=== PATIENT | male | born 1960 | race African-American/Black ===

== ENCOUNTER 2020-11-15 14:59 | Emergency (ER) | payer MEDICARE, MEDICAID ==
[~2020-11-15] VITALS: Ht 182.9 cm; Wt 105.0 kg
[2020-11-15] MEDS: ACETAMINOPHEN 325MG TABLET PO STA (16:05)
[2020-11-15] MEDS: GABAPENTIN 100MG CAPSULE PO ONE (16:15)
[2020-11-15 16:32] LABS: BASOPHILS % 0.9 % (0.0-2.0); EOSINOPHILS % 1.9 % (0.0-5.0); LYMPHOCYTES % 27.1 % (20.0-50.0); MEAN CORPUSCULAR HEMOGLOBIN 29.4 pg (28.0-32.0); MEAN CORPUSCULAR VOLUME 84.6 fL (80.0-94.0); MEAN PLATELET VOLUME 9.8 fl (7.4-10.4); MONOCYTES % 10.8 % (2.0-8.0); NEUTROPHILS % 59.3 % (40.0-76.0); PLATELET 197 x1000/uL (130-400); RED BLOOD CELL COUNT 5.43 mill/uL (4.7-6.1); RED CELL DISTRIBUTION WIDTH 14.3 % (11.6-14.6)
[2020-11-15 16:38] LABS: CHLORIDE 112 mEq/L (98-107)
[2020-11-15] MEDS: RIVAROXABAN 15 MG TABLET PO SCH (17:00)
[2020-11-15] MEDS ORDERED: HEPARIN 25,000 UNITS PREMIX 250 ML IV SCH (18:00)
[2020-11-15] MEDS ORDERED: HEPARIN BOLUS PRN aPTT 37-44 IV (18:00)
[2020-11-15] MEDS ORDERED: HEPARIN BOLUS PRN aPTT <36 IV (18:00)
[2020-11-15] MEDS: HEPARIN 80 UNITS/KG BOLUS IV NR (18:50)
[2020-11-15] MEDS ORDERED: XAR15 MT (19:53)
[2020-11-15 20:58] VITALS: BP 141/90
[2020-11-16] MEDS ORDERED: RIVAROXABAN 15 MG TABLET PO SCH (17:00)
[2020-11-19] MEDS ORDERED: GABA-532 PO (12:08)
[2020-11-19] MEDS ORDERED: SIMV-46 PO (12:08)
[2020-11-19] MEDS ORDERED: AMLO10TA80 PO (12:08)
[2020-11-19] MEDS ORDERED: QUET300T2 PO (12:08)
== END 2020-11-15 21:04 | disposition home or self-care (01) ==
LOC: ER 14:59 → EDSEX 14:59 → ER 21:04 → CANBEDREQ 11-16 08:55
DX: I82.451 Acute embolism and thrombosis of right peroneal vein (principal); G62.9 Polyneuropathy, unspecified; I10 Essential (primary) hypertension; Z87.19 Personal history of other diseases of the digestive system; Z88.8 Allergy status to other drugs, medicaments and biological substances
CPT/HCPCS: 36415; 73630; 80053; 85025; 85730; 93005; 93970; 96374; 99285; J1644

== ENCOUNTER 2020-12-22 01:01 | Inpatient (IN) | payer MEDICARE, MEDICAID ==
[~2020-12-22] VITALS: Ht 182.9 cm; Wt 91.7 kg
[~2020-12-22 01:01] MED LIST: AMLO10TA80 PO; GABA-532 PO; HYDR-4001 PO; QUET300T2 PO; SIMV-46 PO
[2020-12-22] MEDS ORDERED: HYDROCODONE/ACETAMINOPHEN 5/325MG TABLET PO STA (02:28)
[2020-12-22 02:45] LABS: CHLORIDE 113 mEq/L (98-107)
[2020-12-22 02:49] LABS: PARTIAL THROMBOPLASTIN TIME 21.6 sec (23.4-31.0); PROTHROMBIN TIME 10.7 sec (9.6-11.0)
[2020-12-22 03:28] LABS: BASOPHILS % 0.5 % (0.0-2.0); EOSINOPHILS % 1.9 % (0.0-5.0); HEMATOCRIT. 24.4 % (42.0-52.0); HEMOGLOBIN. 8.1 g/dL (14.0-18.0); LYMPHOCYTES % 21.2 % (20.0-50.0); MEAN CORPUSCULAR HEMOGLOBIN 25.5 pg (28.0-32.0); MEAN CORPUSCULAR VOLUME 76.4 fL (80.0-94.0); MEAN PLATELET VOLUME 8.5 fl (7.4-10.4); MONOCYTES % 7.8 % (2.0-8.0); NEUTROPHILS % 68.6 % (40.0-76.0); PLATELET 225 x1000/uL (130-400); RED BLOOD CELL COUNT 3.19 mill/uL (4.7-6.1); RED CELL DISTRIBUTION WIDTH 21.4 % (11.6-14.6)
[2020-12-22] MEDS ORDERED: ACETAMINOPHEN 325MG TABLET PO PRN ×2 (04:30→13:00)
[2020-12-22 05:41] LABS: CLARITY URINE CLEAR (CLEAR); COLOR URINE YELLOW (YELLOW); KETONES URINE NEGATIVE (NEGATIVE); LEUKOCYTE ESTERASE URINE NEGATIVE (NEGATIVE); NITRITE URINE NEGATIVE (NEGATIVE); OCCULT BLOOD URINE NEGATIVE (NEGATIVE); PROTEIN URINE NEGATIVE (NEGATIVE); SPECIFIC GRAVITY URINE 1.023 (1.005-1.030)
[2020-12-22 05:54] LABS: *AMPHETAMINES SCREEN URINE PRESUMTIVE POSITIVE (NEGATIVE); *BARBITURATES SCREEN URINE NEGATIVE (NEGATIVE); *BENZODIAZEPINES SCREEN URINE NEGATIVE (NEGATIVE); *COCAINE SCREEN URINE NEGATIVE (NEGATIVE); METHADONE URINE SCREEN NEGATIVE (NEGATIVE); OPIATES URINE SCREEN NEGATIVE (NEGATIVE); PHENCYCLIDINE URINE SCREEN NEGATIVE (NEGATIVE)
[2020-12-22 05:55] LABS: CANNABINOID URINE SCREEN NEGATIVE (NEGATIVE)
[2020-12-22 12:22] VITALS: BP 177/93
[2020-12-22 12:30] VITALS: BP 177/93
[2020-12-22] MEDS ORDERED: AMLODIPINE 10MG TABLET PO SCH (12:45)
[2020-12-22] MEDS ORDERED: CLONIDINE 0.1MG TABLET PO PRN (13:00)
[2020-12-22] MEDS ORDERED: MAGNESIUM/ALUMINUM HYDROXIDE/SIMETHICONE 30ML UDC PO PRN (13:00)
[2020-12-22] MEDS ORDERED: ONDANSETRON HCL 4MG/2ML INJ IV PRN (13:00)
[2020-12-22] MEDS ORDERED: HYDROCODONE/APAP 7.5/325MG 1 TAB TABLET PO PRN (13:00)
[2020-12-22] MEDS ORDERED: QUETIAPINE FUMARATE 50MG TABLET PO SCH (13:00)
[2020-12-22] MEDS ORDERED: GUAIFENESIN 200MG/10ML SUGAR FREE UDC PO PRN (13:00)
[2020-12-22] MEDS ORDERED: DOCUSATE SODIUM 100MG CAPSULE PO PRN (13:00)
[2020-12-22] MEDS: GABAPENTIN 300MG CAPSULE PO SCH ×2 (13:38→21:17)
[2020-12-22] MEDS: QUETIAPINE FUMARATE 50MG TABLET PO SCH (14:32)
[2020-12-22 16:00] VITALS: BP 128/56
[2020-12-22 20:00] VITALS: BP 99/58
[2020-12-23] VITALS: BP 113/57
[2020-12-23 04:00] VITALS: BP 109/70
[2020-12-23] MEDS: GABAPENTIN 300MG CAPSULE PO SCH (05:55)
[2020-12-23 08:00] VITALS: BP 111/68
[2020-12-23] MEDS: QUETIAPINE FUMARATE 50MG TABLET PO SCH (08:37)
[2020-12-23] MEDS ORDERED: AMLODIPINE 10MG TABLET PO SCH (09:00)
[2020-12-23 09:36] LABS: BASOPHILS % 0.5 % (0.0-2.0); EOSINOPHILS % 2.3 % (0.0-5.0); HEMATOCRIT. 25.7 % (42.0-52.0); HEMOGLOBIN. 8.4 g/dL (14.0-18.0); MEAN CORPUSCULAR HEMOGLOBIN 24.9 pg (28.0-32.0); MEAN CORPUSCULAR VOLUME 76.1 fL (80.0-94.0); MEAN PLATELET VOLUME 8.3 fl (7.4-10.4); MONOCYTES % 9.8 % (2.0-8.0); NEUTROPHILS % 69.4 % (40.0-76.0); PLATELET 229 x1000/uL (130-400); RED BLOOD CELL COUNT 3.37 mill/uL (4.7-6.1); RED CELL DISTRIBUTION WIDTH 21.7 % (11.6-14.6)
[2020-12-23 09:47] LABS: CHLORIDE 112 mEq/L (98-107)
[2020-12-23 09:58] LABS: LDL CHOLESTEROL 71 mg/dL (5-100)
[2020-12-23 10:01] LABS: HDL CHOLESTEROL 40 mg/dL (40-59)
[2020-12-23 12:00] VITALS: BP 107/69
[2020-12-23 13:40] VITALS: BP 107/89
== END 2020-12-23 14:50 | disposition home or self-care (01) | DRG 300 ==
LOC: ER 01:01 → 5WST 04:31 → ENRESERV 10:29
PROVIDERS: ADMIT Hospitalist; ATTEND Hospitalist
DX: I82.431 Acute embolism and thrombosis of right popliteal vein (principal); E44.1 Mild protein-calorie malnutrition; M79.605 Pain in left leg; D63.8 Anemia in other chronic diseases classified elsewhere; E78.5 Hyperlipidemia, unspecified; G62.9 Polyneuropathy, unspecified; F17.200 Nicotine dependence, unspecified, uncomplicated; I10 Essential (primary) hypertension; Z95.828 Presence of other vascular implants and grafts; Z88.8 Allergy status to other drugs, medicaments and biological substances; Z68.27 Body mass index [BMI] 27.0-27.9, adult; Z79.899 Other long term (current) drug therapy; F19.10 Other psychoactive substance abuse, uncomplicated
CPT/HCPCS: 36415; 71045; 80053; 80061; 80305; 81003; 85025; 93005; 93970; 99285

== ENCOUNTER 2021-07-06 20:49 | Inpatient (IN) | payer MEDICARE, MEDICAID ==
[~2021-07-06] VITALS: Ht 188 cm; Wt 91.4 kg
[~2021-07-06 20:49] MED LIST changes: +IBUP-2029 MT; +ZOLP5TAB2 MT
[2021-07-06] MEDS ORDERED: KETOROLAC 30MG/ML VIAL IV STA (22:40)
[2021-07-07] LABS: BASOPHILS % 0.5 % (0.0-2.0); CHLORIDE 104 mEq/L (98-107); EOSINOPHILS % 0.4 % (0.0-5.0); HEMATOCRIT. 40.9 % (42.0-52.0); HEMOGLOBIN. 13.7 g/dL (14.0-18.0); LYMPHOCYTES % 9.7 % (20.0-50.0); MEAN CORPUSCULAR HEMOGLOBIN 23.8 pg (28.0-32.0); MEAN PLATELET VOLUME 9.1 fl (7.4-10.4); MONOCYTES % 8.2 % (2.0-8.0); NEUTROPHILS % 81.2 % (40.0-76.0); PLATELET 163 x1000/uL (130-400); RED BLOOD CELL COUNT 5.77 mill/uL (4.7-6.1); RED CELL DISTRIBUTION WIDTH 20.6 % (11.6-14.6)
[2021-07-07 00:03] LABS: INR 1.1; PARTIAL THROMBOPLASTIN TIME 28.1 sec (23.4-31.0); PROTHROMBIN TIME 11.4 sec (9.6-11.0)
[2021-07-07 00:04] LABS: ETHANOL BLOOD < 10 mg/dL
[2021-07-07] MEDS ORDERED: MORPHINE SULFATE 4 MG/ML CPJ (NOT FOR IM USE) IV NR (00:45)
[2021-07-07] MEDS ORDERED: SODIUM CHLORIDE 0.9% 1,000 ML IV NR (00:45)
[2021-07-07 03:00] VITALS: BP 157/93
[2021-07-07 03:30] VITALS: BP 157/93
[2021-07-07] MEDS ORDERED: NON FORMULARY PATIENT HOME MED XX SCH (04:15)
[2021-07-07] MEDS ORDERED: ONDANSETRON HCL 4MG/2ML INJ IV PRN (04:15)
[2021-07-07] MEDS ORDERED: GABAPENTIN 300MG CAPSULE PO PRN (04:15)
[2021-07-07] MEDS ORDERED: IBUPROFEN 600MG TABLET PO PRN (04:15)
[2021-07-07] MEDS ORDERED: NALOXONE HCL 0.4MG/ML VIAL IV PRN (04:30)
[2021-07-07] MEDS: ENOXAPARIN 100MG/ML SYR SUBCUT SCH ×2 (05:08→17:37)
[2021-07-07 08:00] VITALS: BP 143/98
[2021-07-07 08:41] LABS: BASOPHILS % 0.5 % (0.0-2.0); EOSINOPHILS % 1.5 % (0.0-5.0); HEMATOCRIT. 39.1 % (42.0-52.0); LYMPHOCYTES % 8.8 % (20.0-50.0); MEAN CORPUSCULAR HEMOGLOBIN 24.3 pg (28.0-32.0); MEAN PLATELET VOLUME 8.8 fl (7.4-10.4); MONOCYTES % 8.6 % (2.0-8.0); NEUTROPHILS % 80.6 % (40.0-76.0); PLATELET 147 x1000/uL (130-400); RED BLOOD CELL COUNT 5.35 mill/uL (4.7-6.1); RED CELL DISTRIBUTION WIDTH 20.6 % (11.6-14.6)
[2021-07-07] MEDS: AMLODIPINE 10MG TABLET PO SCH (08:58)
[2021-07-07] MEDS ORDERED: QUETIAPINE FUMARATE 50MG TABLET PO SCH (09:00)
[2021-07-07 12:00] VITALS: BP 109/69
[2021-07-07 16:00] VITALS: BP 106/76
[2021-07-07 20:00] VITALS: BP 103/66
[2021-07-07] MEDS: ATORVASTATIN CALCIUM 20MG TABLET PO SCH (21:05)
[2021-07-08] VITALS: BP 118/79
[2021-07-08 04:00] VITALS: BP 140/90
[2021-07-08] MEDS: HYDROCODONE/ACETAMINOPHEN 5/325MG TABLET PO PRN (04:42)
[2021-07-08] MEDS: ENOXAPARIN 100MG/ML SYR SUBCUT SCH ×2 (05:40→17:30)
[2021-07-08 07:49] LABS: CLARITY URINE CLEAR (CLEAR); COLOR URINE YELLOW (YELLOW); KETONES URINE NEGATIVE (NEGATIVE); LEUKOCYTE ESTERASE URINE NEGATIVE (NEGATIVE); NITRITE URINE NEGATIVE (NEGATIVE); OCCULT BLOOD URINE NEGATIVE (NEGATIVE); PROTEIN URINE NEGATIVE (NEGATIVE); SPECIFIC GRAVITY URINE 1.021 (1.005-1.030); UROBILINOGEN URINE 0.2 E.U./dL (0.2-1.0)
[2021-07-08 07:52] LABS: *AMPHETAMINES SCREEN URINE PRESUMTIVE POSITIVE (NEGATIVE); *BARBITURATES SCREEN URINE NEGATIVE (NEGATIVE); *BENZODIAZEPINES SCREEN URINE NEGATIVE (NEGATIVE); *COCAINE SCREEN URINE PRESUMTIVE POSITIVE (NEGATIVE)
[2021-07-08 07:53] LABS: CANNABINOID URINE SCREEN NEGATIVE (NEGATIVE); METHADONE URINE SCREEN NEGATIVE (NEGATIVE); OPIATES URINE SCREEN PRESUMTIVE POSITIVE (NEGATIVE); PHENCYCLIDINE URINE SCREEN NEGATIVE (NEGATIVE)
[2021-07-08 08:00] VITALS: BP 126/90
[2021-07-08] MEDS: AMLODIPINE 10MG TABLET PO SCH (08:59)
[2021-07-08] MEDS: CYCLOBENZAPRINE 10MG TABLET PO PRN (12:40)
[2021-07-08 16:37] VITALS: BP 142/81
[2021-07-08 20:00] VITALS: BP 137/99
[2021-07-08] MEDS: ATORVASTATIN CALCIUM 20MG TABLET PO SCH (21:11)
[2021-07-08] MEDS: ZOLPIDEM TARTRATE 5MG TABLET PO PRN (21:11)
[2021-07-09] VITALS (7 sets, daily range): BP systolic 111–131; BP diastolic 71–85
[2021-07-09] MEDS: ENOXAPARIN 100MG/ML SYR SUBCUT SCH ×2 (05:36→18:38)
[2021-07-09] MEDS: HYDROCODONE/ACETAMINOPHEN 5/325MG TABLET PO PRN ×2 (05:44→20:58)
[2021-07-09] MEDS: AMLODIPINE 10MG TABLET PO SCH (09:49)
[2021-07-09 11:23] LABS: BASOPHILS % 0.7 % (0.0-2.0); EOSINOPHILS % 3.3 % (0.0-5.0); HEMATOCRIT. 33.9 % (42.0-52.0); HEMOGLOBIN. 11.5 g/dL (14.0-18.0); MEAN CORPUSCULAR HEMOGLOBIN 24.6 pg (28.0-32.0); MEAN CORPUSCULAR VOLUME 72.1 fL (80.0-94.0); MEAN PLATELET VOLUME 9.3 fl (7.4-10.4); MONOCYTES % 10.3 % (2.0-8.0); NEUTROPHILS % 69.7 % (40.0-76.0); PLATELET 163 x1000/uL (130-400); RED CELL DISTRIBUTION WIDTH 20.5 % (11.6-14.6)
[2021-07-09 11:27] LABS: CHLORIDE 107 mEq/L (98-107)
[2021-07-09] MEDS: CYCLOBENZAPRINE 10MG TABLET PO PRN (12:33)
[2021-07-09] MEDS: ZOLPIDEM TARTRATE 5MG TABLET PO PRN (20:57)
[2021-07-09] MEDS: ATORVASTATIN CALCIUM 20MG TABLET PO SCH (20:57)
[2021-07-10] VITALS: BP 114/67
[2021-07-10 04:00] VITALS: BP 120/78
[2021-07-10] MEDS: ENOXAPARIN 100MG/ML SYR SUBCUT SCH (05:05)
[2021-07-10] MEDS: CYCLOBENZAPRINE 10MG TABLET PO PRN (06:42)
[2021-07-10] MEDS: HYDROCODONE/ACETAMINOPHEN 5/325MG TABLET PO PRN (06:43)
[2021-07-10 08:00] VITALS: BP 121/72
[2021-07-10] MEDS ORDERED: DIPHENHYDRAMINE 25MG CAPSULE PO PRN (09:00)
[2021-07-10] MEDS: AMLODIPINE 10MG TABLET PO SCH (10:09)
[2021-07-10 12:35] VITALS: BP 126/71
== END 2021-07-10 13:31 | DRG 299 ==
LOC: ER 20:49 → MICUSO 07-07 01:07 → 7EST 07-07 02:06
PROVIDERS: ADMIT Hospitalist; ATTEND Hospitalist
DX: I82.412 Acute embolism and thrombosis of left femoral vein (principal); N17.0 Acute kidney failure with tubular necrosis; R65.10 Systemic inflammatory response syndrome (SIRS) of non-infectious origin without acute organ dysfunction; I82.432 Acute embolism and thrombosis of left popliteal vein; E78.5 Hyperlipidemia, unspecified; G89.29 Other chronic pain; I12.9 Hypertensive chronic kidney disease with stage 1 through stage 4 chronic kidney disease, or unspecified chronic kidney disease; N18.9 Chronic kidney disease, unspecified; R62.7 Adult failure to thrive; Z20.822 Contact with and (suspected) exposure to COVID-19; M10.072 Idiopathic gout, left ankle and foot; Z86.718 Personal history of other venous thrombosis and embolism; Z95.828 Presence of other vascular implants and grafts; Z79.899 Other long term (current) drug therapy; Z88.8 Allergy status to other drugs, medicaments and biological substances; Z68.25 Body mass index [BMI] 25.0-25.9, adult; M10.9 Gout, unspecified
CPT/HCPCS: 36415; 80048; 80053; 80305; 80320; 81003; 84550; 85025; 85651; 86140; 87426; 93970; 97162; 99285; J1650; J1885; J2270; Q0163; G0480

== ENCOUNTER 2022-11-27 13:55 | Emergency (ER) | payer OTHER, MEDICAID ==
[~2022-11-27] VITALS: Ht 182.9 cm; Wt 98.0 kg
[2022-11-27] MEDS ORDERED: IBUPROFEN 400MG TABLET PO ONE (15:15)
[2022-11-27] MEDS ORDERED: ACETAMINOPHEN 325MG TABLET PO ONE (15:15)
[2022-11-27 16:11] LABS: CHLORIDE 112 mEq/L (98-107)
[2022-11-27 16:13] LABS: BASOPHILS % 0.9 % (0.0-2.0); EOSINOPHILS % 3.4 % (0.0-5.0); HEMATOCRIT. 46.2 % (42.0-52.0); HEMOGLOBIN. 15.8 g/dL (14.0-18.0); LYMPHOCYTES % 19.7 % (20.0-50.0); MEAN CORPUSCULAR HEMOGLOBIN 29.7 pg (28.0-32.0); MEAN CORPUSCULAR VOLUME 86.8 fL (80.0-94.0); MONOCYTES % 12.2 % (2.0-8.0); NEUTROPHILS % 63.8 % (40.0-76.0); RED BLOOD CELL COUNT 5.32 mill/uL (4.7-6.1); RED CELL DISTRIBUTION WIDTH 14.9 % (11.6-14.6)
[2022-11-27 16:51] LABS: MEAN PLATELET VOLUME 9.6 fl (7.4-10.4)
[2022-11-27 16:53] LABS: PLATELET ESTIMATE NORMAL
[2022-11-27 16:54] LABS: PLATELET 182 x1000/uL (130-400)
[2022-11-27] MEDS ORDERED: APIXABAN 5 MG TABLET PO STA (16:59)
[2022-11-27] MEDS ORDERED: HYDROCODONE/ACETAMINOPHEN 7.5/325MG TABLET PO ONE (17:00)
[2022-11-27] MEDS ORDERED: APIX5TAB MT ×3 (17:13→17:27)
[2022-11-28 06:00] VITALS: BP 147/85
== END 2022-11-28 08:32 | disposition home or self-care (01) ==
LOC: ER 14:09
DX: I82.402 Acute embolism and thrombosis of unspecified deep veins of left lower extremity (principal); I10 Essential (primary) hypertension; F15.10 Other stimulant abuse, uncomplicated; Z79.899 Other long term (current) drug therapy
CPT/HCPCS: 36415; 80053; 84484; 85025; 93005; 93971; 99285

== ENCOUNTER 2024-03-24 10:29 | Emergency (ER) | payer MEDICAID, MEDICARE ==
[~2024-03-24] VITALS: Ht 182.9 cm; Wt 93.9 kg
[~2024-03-24 10:29] MED LIST changes: +APIX5TAB MT; +FAMO-135 MT; -HYDR-4001 PO; -QUET300T2 PO
[2024-03-24 10:43] VITALS: BP 149/94; PULSE 81; RESP 16; TEMP 98.7; O2SAT 100
[2024-03-24] MEDS ORDERED: AMLO10TA80 PO (11:45)
[2024-03-24] MEDS ORDERED: APIX5TAB MT (11:45)
[2024-03-24] MEDS ORDERED: GABA-532 PO (11:45)
[2024-03-24] MEDS ORDERED: FAMO-135 MT (11:45)
[2024-03-24] MEDS ORDERED: SIMV-46 PO (11:45)
== END 2024-03-24 12:57 | disposition home or self-care (01) ==
LOC: ER 10:29
DX: I82.592 Chronic embolism and thrombosis of other specified deep vein of left lower extremity (principal); I10 Essential (primary) hypertension; F19.90 Other psychoactive substance use, unspecified, uncomplicated
CPT/HCPCS: 93971; 99284